=== PATIENT | male | born 1970 | race Caucasian/White ===

== ENCOUNTER 2018-03-20 14:07 | Emergency (ER) | payer OTHER ==
[2018-03-20 14:14] VITALS: BP 143/72
--- NOTE | 2018-03-20 14:32 | ER Document Report ---
ED General - General Mode of Arrival: Ambulatory Information source: Patient TRAVEL OUTSIDE OF THE [place] IN LAST 30 DAYS: No - General Chief Complaint: Rectal Pain Stated Complaint: POSSIBLE HEMORRHOIDS Time Seen by Provider: 03/20/18 14:19 Notes: Patient is a 47 year old male with a history of thrombosed hemorrhoids presents to the emergency department complaining rectal pain and blood in his stool onset 2 days ago worsening today. Patient states he feels he has a hemorrhoid and has been applying Preparation H cooling ointment and using medicated wipes in attempt to relieve his pain which he states has not been helping. He states during his bowel movements he notices bloody stool as well as a copious amount of blood on his boxers. He states the pain is exacerbated when he his sitting. Patient denies any constipation. Patient states he has previously had his thrombosed hemorrhoids removed. (MILI WHITLEY) - Related Data Allergies/Adverse Reactions: ivp dye Allergy (Uncoded 03/20/18 14:09) Past Medical History - General Information source: Patient - Social History Smoking Status: Never Smoker Chew tobacco use (# tins/day): Yes Frequency of alcohol use: None Drug Abuse: None Family History: Reviewed & Not Pertinent Patient has suicidal ideation: No Patient has homicidal ideation: No Review of Systems - Review of Systems Constitutional: No symptoms reported EENT: No symptoms reported Cardiovascular: No symptoms reported Respiratory: No symptoms reported Gastrointestinal: See HPI, Rectal bleeding Genitourinary: No symptoms reported Male Genitourinary: No symptoms reported Musculoskeletal: No symptoms reported Skin: No symptoms reported Hematologic/Lymphatic: No symptoms reported Neurological/Psychological: No symptoms reported -: Yes All other systems reviewed and negative Physical Exam - Vital signs Vitals: Temp Pulse Resp BP Pulse Ox 97.4 F 64 18 143/72 H 98 03/20/18 14:12 03/20/18 14:12 03/20/18 14:12 03/20/18 14:12 03/20/18 14:12 - Notes Notes: GENERAL: Alert, interacts well. No acute distress. HEAD: Normocephalic, atraumatic. EYES: Pupils equal, round, and reactive to light. Extraocular movements intact. ENT: Oral mucosa moist, tongue midline. NECK: Full range of motion. Supple. Trachea midline. LUNGS: Clear to auscultation bilaterally, no wheezes, rales, or rhonchi. No respiratory distress. EXTREMITIES: Moves all 4 extremities spontaneously. NEUROLOGICAL: Alert and oriented x3. Normal speech. PSYCH: Normal affect, normal mood. SKIN: Warm, dry, normal turgor. No rashes or lesions noted. RECTAL: At approximately the 2 o'clock position there is a 1cm non-thrombosed hemorrhoid which is pink in appearance and tender to palpation. There is a pinpoint abrasion which could be source of bleeding. No active bleeding. (MILI WHITLEY) Course - Re-evaluation Re-evalutation: 03/20/18 14:33 Hemorrhoid is not thrombosed therefore we should not incise it. Explained this to the patient he understands why. Patient is encouraged to follow-up with colorectal surgeon as an outpatient if the pain should continue. Currently patient is only using astringents and vasoconstrictors, he is not using any other medications to help with this. Patient will be started on Proctofoam HC in addition to the Preparation H cooling gel and Tucks wipes that he has been using. Patient will also be started on Nupercaine gel. Discharged home. ( REAL MANN) - Vital Signs Vital signs: Temp Pulse Resp BP Pulse Ox 97.4 F 64 18 143/72 H 98 03/20/18 14:12 03/20/18 14:12 03/20/18 14:12 03/20/18 14:12 03/20/18 14:12 Discharge - Discharge Clinical Impression: External hemorrhoid, bleeding Condition: Stable Disposition: HOME, SELF-CARE Additional Instructions: Hemorrhoids You have hemorrhoids. These are formed by enlargement of veins around the anus. The cause is increased pressure in the veins, from or straining at bowel movements. Hemorrhoids often cause itching and bleeding with bowel movements. When a hemorrhoid becomes clotted, severe pain and swelling result. Yours has not yet clotted. Soothing creams and suppositories are often prescribed. Warm sitz-baths may also decrease pain, swelling, and itching. Eat a high-fiber diet. Stool softeners such as Metamucil will help. Keep the area very clean. Medicated cleansing pads (such as Tucks) are useful after bowel movements. A hose-mounted shower unit (like a shower massager at low water pressure) can be used to clean around tender hemorrhoid tags. You should call the doctor or return if you develop fever, increasing pain , or an enlarging mass around the anus, or if you simply fail to improve with treatment. You may continue to use the Preparation H cooling gel but you should also start using the Proctofoam HC, continue to use the witch pina wipes for cleansing and start using the Nupercaine gel. Prescriptions: Dibucaine 1% Ointment [Nupercainal 1% Oint 28 gm] 1 applic TP PRN PRN #1 tube PRN Reason: Hydrocortisone/Pramoxine [Proctofoam-Hc Foam] 10 gm RC PRN PRN #1 foam PRN Reason: Referrals: MAHENDRA QUINTANA MD [ACTIVE STAFF] - Follow up as needed Scribe Attestation: 03/20/18 15:40 I personally performed the services described in the documentation, reviewed and edited the documentation which was dictated to the scribe in my presence, and it accurately records my words and actions. (REAL MANN)
== END 2018-03-20 14:39 | disposition home or self-care (01) ==
LOC: ER 14:07
DX: K64.9 Unspecified hemorrhoids (principal); S30.817A Abrasion of anus, initial encounter; X58.XXXA Exposure to other specified factors, initial encounter; Z91.041 Radiographic dye allergy status
CPT/HCPCS: 99283